=== PATIENT | male | born 2000 | race Caucasian/White ===

== ENCOUNTER 2020-03-10 21:15 | Emergency (ER) | payer OTHER ==
[~2020-03-10] VITALS: Ht 190.5 cm; Wt 145.5 kg
[2020-03-10 21:30] VITALS: TEMP 98.1
[2020-03-10 23:49] VITALS: BP 138/62; PULSE 90
== END 2020-03-11 | disposition home or self-care (01) ==
LOC: COL.ER 21:15
DX: M54.6 Pain in thoracic spine (principal); F17.210 Nicotine dependence, cigarettes, uncomplicated

== ENCOUNTER 2020-03-13 13:58 | Observation (INO) | payer OTHER ==
[~2020-03-13] VITALS: Ht 190.5 cm; Wt 116.8 kg
[2020-03-13] MEDS ORDERED: TYLENOL 325MG325 MG (14:17)
[2020-03-13] MEDS ORDERED: NORCO 325 MG-51 TAB PO (14:17)
[2020-03-13 15:17] LABS: BASO % 0.3 % (0.0-2.0); EOS # 0.2 (0.0-0.7); GRAN # 6.3 (1.4-6.5); GRAN % 65.2 % (42.2-75.2); HEMATOCRIT 50.5 % (42.0-52.0); HEMOGLOBIN 16.9 g/dl (13.5-18.0); LYMPH # 2.4 (1.2-3.4); LYMPH % 24.9 % (20.0-51.0); MEAN CELL VOLUME 88 fl (80.0-100.0); MEAN CORPUSCULAR HEMOGLOBIN 30 pg (27.0-31.0); MEAN CORPUSCULAR HGB CONC 34 g/dl (33.0-37.0); MEAN PLATELET VOLUME 10.7 fl (7.4-10.4); MONO # 0.7 (0.1-0.6); MONO % 7.4 % (1.7-9.3); PLATELET COUNT 264 K/mm3 (130-400); RED BLOOD COUNT 5.72 M/mm3 (4.20-5.60); REDCELL DISTRIBUTION WIDTH-CV 14.1 % (11.5-14.5)
[2020-03-13 15:29] LABS: ALANINE AMINOTRANSFERASE 31 U/L (4-49); ALBUMIN 4.4 gm/dL (3.5-5.0); ALKALINE PHOSPHATASE 98 U/L (50-136); ANION GAP 9 mmol/L (7-16); AST,SGOT 35 U/L (15-37); BLOOD UREA NITROGEN 10 mg/dL (9-20); C-REACTIVE PROTEIN 3.9 mg/dL (0.0-0.9); CALCIUM 9.8 mg/dL (8.4-10.2); CARBON DIOXIDE 27 mmol/L (22-30); CHLORIDE 103 mmol/L (98-107); CREATININE, serum 0.79 (0.66-1.25); GLUCOSE 109 mg/dL (74-106); LIPASE 48 U/L (23-300); SODIUM 139 mmol/L (137-145); TOTAL PROTEIN 8.4 gm/dL (6.4-8.2)
[2020-03-13 15:36] LABS: COLLECTION METHOD CLEAN CATCH
[2020-03-13 15:46] LABS: TROPONIN-I < 0.012 ng/mL (0.000-0.035)
[2020-03-13 15:48] LABS: MUCOUS Present /lpf; PH 6 (5-8); SQUAMOUS EPITHELIAL None Seen /hpf; URINE APPEARANCE Clear; URINE BACTERIA None Seen /hpf; URINE BILIRUBIN Negative (NEGATIVE); URINE BLOOD Negative (NEGATIVE); URINE COLOR Amber; URINE GLUCOSE Negative (NEGATIVE); URINE KETONE Negative (NEGATIVE); URINE LEUKOCYTE ESTERASE Negative (NEGATIVE); URINE NITRATE Negative (NEGATIVE); URINE PROTEIN(semi-quant) Negative (NEGATIVE); URINE RBC 0-2 /hpf
--- NOTE | 2020-03-13 18:13 | NUR ---
Patient arrived to the floor at this time. He is comfortable and stable. Speaking with physicians at this time. Pain is controlled at this time. IV site is CD&I, flushed well. Fluids were reconnected to IV pole are started. IV zosyn was completed before arrival. Other needs at this time. Will complete med rec TAYLOR. No other needs at this time.
[2020-03-13] MEDS ORDERED: LUNESTA3 MG PO (18:19)
[2020-03-13] MEDS ORDERED: ZOLOFT 100MG100 MG PO (18:20)
[2020-03-13] MEDS ORDERED: ADDERALL XR30 MG PO (18:21)
[2020-03-13 19:26] VITALS: BP 96/67; PULSE 64; TEMP 97.4
--- NOTE | 2020-03-13 19:45 | NUR ---
Received report from Gricelda. Seen patient awake, lying in bed. He reports to have pain on his mid back and radiates on his abdomen. He explains pain as dull. Pain score of 4/10. With IV on right AC infusing NS at 125ml/hr. Instructed to be on NPO. 5 page assesment and med rec done. He is alert, oriented and independent.
--- NOTE | 2020-03-13 20:09 | NUR ---
Patient states he starts to feel severe pain on his mid back. Pain score of 6/10. Dilaudid PRN given.
[2020-03-13 20:13] VITALS: BP 96/67; PULSE 64; TEMP 97.4
[2020-03-13 23:03] VITALS: BP 134/79; PULSE 94; TEMP 98.1
[2020-03-14 04:26] VITALS: BP 145/82; PULSE 72; TEMP 98.1
--- NOTE | 2020-03-14 06:00 | NUR ---
Patient still with mid back pain, latest pain score is 4-5/10. He refuses to have Dilaudid for now. He just states he's already hungry. Informed him we had to maintain NPO until further orders.
[2020-03-14 07:07] LABS: BASO % 0.3 % (0.0-2.0); EOS # 0.2 (0.0-0.7); EOS % 2.4 % (0-4.0); GRAN # 4.8 (1.4-6.5); GRAN % 55.4 % (42.2-75.2); HEMATOCRIT 45.8 % (42.0-52.0); HEMOGLOBIN 15.2 g/dl (13.5-18.0); LYMPH # 3.1 (1.2-3.4); LYMPH % 35.3 % (20.0-51.0); MEAN CELL VOLUME 89 fl (80.0-100.0); MEAN CORPUSCULAR HEMOGLOBIN 30 pg (27.0-31.0); MEAN CORPUSCULAR HGB CONC 33 g/dl (33.0-37.0); MEAN PLATELET VOLUME 10.7 fl (7.4-10.4); MONO # 0.6 (0.1-0.6); MONO % 6.5 % (1.7-9.3); PLATELET COUNT 227 K/mm3 (130-400); RED BLOOD COUNT 5.13 M/mm3 (4.20-5.60); REDCELL DISTRIBUTION WIDTH-CV 14.2 % (11.5-14.5)
[2020-03-14 07:25] VITALS: BP 144/70; PULSE 63; TEMP 97.6
[2020-03-14 07:25] LABS: ALBUMIN 3.8 gm/dL (3.5-5.0); BILIRUBIN,TOTAL 0.7 mg/dL (0.0-1.0); CALCIUM 8.8 mg/dL (8.4-10.2); CREATININE, serum 0.73 (0.66-1.25); POTASSIUM 3.9 mmol/L (3.4-5.0); TOTAL PROTEIN 7.1 gm/dL (6.4-8.2)
--- NOTE | 2020-03-14 08:00 | NUR ---
Pt is laying in bed at this time in pain. Pt states that when he does not eat he tends to get diarrhea. This RN verified diarrhea, no blood in the stool. Pt is on the phone with father who is keeping him calm. Pt has a sort of child-like behavior as he has his Teddybear to ease his anxiety. Will continue to monitor pain, and reassess PRN. Call light within reach, and personal belongings at bedside. no further concerns.
--- NOTE | 2020-03-14 09:49 | NUR ---
Initial visit; Patient feeling anxious and afraid. Court Attendant listened and offered comfort and prayer. Patient states he will try to remain positive. Court Attendant will follow up while patient is here.
[2020-03-14 11:48] VITALS: BP 156/77; PULSE 65; TEMP 97.8
[2020-03-14] MEDS ORDERED: ZOFRAN 4MG T4 MG/TAB PO (16:17)
[2020-03-14] MEDS ORDERED: ROXICODONE 55 MG/TAB PO (16:18)
--- NOTE | 2020-03-14 16:23 | NUR ---
Heater [place] attended clinical rounds with team. The patient will not have surgery and will likely discharge on , 03/15. After rounds, SW met with the patient to complete initial intake. The patient lives in [place] with a roommate. The patient denies DME use and is independent with ADLs. The patient does not have a PCP but states his parents live in and will follow up with someone there. The patient receives medications from [facility] [place]. The patient does not have advanced directives. The patient's parents would make medical decisions, if needed. The plans to return home at discharge with his mother, Suzy ([phone]) will provide transportion at discharge. There are no additional needs at this time.
[2020-03-14 16:41] VITALS: BP 143/74; PULSE 79; TEMP 98.9
== END 2020-03-14 17:30 | disposition home or self-care (01) ==
LOC: COL.ER 13:58 → MEDICAL 17:11
PROVIDERS: Emergency Medicine; Physician Assistant; ADMIT Internal Medicine
DX: R10.11 Right upper quadrant pain (principal); I31.3 Pericardial effusion (noninflammatory); F32.9 Major depressive disorder, single episode, unspecified; F41.9 Anxiety disorder, unspecified; F90.9 Attention-deficit hyperactivity disorder, unspecified type; G47.00 Insomnia, unspecified; E66.9 Obesity, unspecified; Z79.891 Long term (current) use of opiate analgesic; F17.210 Nicotine dependence, cigarettes, uncomplicated
CPT/HCPCS: 99222-AI; G0378; J1170; J1885; J2360; J2543; J7030; Q9967